=== PATIENT | female | born 1960 | race Caucasian/White ===

== ENCOUNTER 2017-01-25 15:23 | Emergency (ER) | payer SELFPAY ==
[~2017-01-25] VITALS: Ht 165.1 cm; Wt 113.4 kg
[2017-01-25 15:51] VITALS: BP 128/72
--- NOTE | 2017-01-25 16:03 | Emergency Room Report ---
History of Present Illness General Chief Complaint: Pain Source: Patient Present Illness HPI 56-year-old female presents to emergency Department complaining of pain swelling and bruising in the right foot times one week. Patient states that 2 years ago she fell and injured her foot and was never evaluated. Patient states she would intermittently has pain and swelling. Patient states that last week she was attempting to stretch her ankle while standing and thinks she may have reinjured possible previous fracture that was never diagnosed. Patient states current pain is 4/10 in severity however she took a prescription pain medication this a.m. Patient states that normally her pain is 8/10 in severity localized in the dorsum of the right foot, exacerbated upon weightbearing. Patient is currently using crutches. Denies numbness tingling or loss of sensation or gross motor movements of the extremities, incontinence of bowel or bladder. Denies CP, Palpitations, LOC, AMS, dizziness, Changes in Vision, Sensation, paresthesias, or a sudden severe headache. Allergies: Coded Allergies: EGG (Verified Allergy, Unknown, 01/25/17) SHELLFISH DERIVED (Verified Allergy, Unknown, 01/25/17) Patient History Past Medical History: see triage record Past Surgical History: none Pertinent Family History: none Now: No Immunizations: UTD Reviewed Nursing Documentation: PMH: Agreed, PSxH: Agreed Review of Systems All Other Systems: negative except mentioned in HPI Physical Exam Vital Signs Date Time Temp Pulse Resp B/P Pulse Ox O2 Delivery O2 Flow Rate FiO2 01/25/17 15:26 98.2 97 15 128/72 97 Room Air Sp02 EP Interpretation: reviewed, normal General Appearance: no apparent distress, alert, GCS 15, non-toxic Head: normocephalic, atraumatic Eyes: bilateral eye PERRL, bilateral eye normal inspection ENT: hearing grossly normal, normal pharynx, no angioedema, normal voice Neck: full range of motion, supple/symm/no masses Respiratory: lungs clear, normal breath sounds, speaking full sentences Cardiovascular #1: regular rate, rhythm, no edema, normal capillary refill Cardiovascular #2: 2+ dorsalis pedis (R), 2+ dorsalis pedis (L) Rectal: deferred Musculoskeletal: back normal, normal range of motion - FROM with pain, non- tender Neurologic: alert, oriented x3, responsive, motor strength/tone normal, sensory intact, speech normal Psychiatric: judgement/insight normal, memory normal, mood/affect normal, no suicidal/homicidal ideation Reflexes: 4+ bicep (R), 4+ bicep (L), 4+ tricep (R), 4+ tricep (L), 4+ knee (R) , 4+ knee (L) Skin: normal color, no rash, warm/dry, well hydrated Lymphatic: no adenopathy Procedures Splinting Splinting : Consent: Verbal Location: right foot Pre-Made Type: VIET wrap Pre-Proc Neuro Vasc Exam: normal Post-Proc Neuro Vasc Exam: normal Patient Tolerated: Well Complications: None Medical Decision Making PA Attestation Dr. Wyatt is my supervising Physician whom patient management has been discussed with. Diagnostic Impression: Primary Impression: Right foot sprain Qualified Codes: S93.601A - Unspecified sprain of right foot, initial encounter ER Course 56-year-old female presents to emergency Department complaining of pain swelling and bruising in the right foot times one week. Patient states that 2 years ago she fell and injured her foot and was never evaluated. Patient states she would intermittently has pain and swelling. Patient states that last week she was attempting to stretch her ankle while standing and thinks she may have reinjured possible previous fracture that was never diagnosed. Patient states current pain is 4/10 in severity however she took a prescription pain medication this a.m. Patient states that normally her pain is 8/10 in severity localized in the dorsum of the right foot, exacerbated upon weightbearing. Patient is currently using crutches. Ddx considered but are not limited to Fracture, dislocation, contusion, Sprain/ Strain. Vital signs: are WNL, pt. is afebrile H&PE are most consistent with foot contusion, possible sprain, will r/o fx with imaging. ORDERS: - X-ray Right Foot 3 views - negative for fx, Dislocation, or significant soft tissue injury, per preliminary read in ED by Dr. Wyatt ED INTERVENTIONS: - 600mg Motrin PO -Viet wrap applied by industrial maintenance technician. Pt. remains neurovascularly intact. DISCHARGE: At this time pt. is stable for d/c to home. Will provide printed patient care instructions, and any necessary prescriptions. Care plan and follow up instructions have been discussed with the patient prior to discharge. Last Vital Signs Date Time Temp Pulse Resp B/P Pulse Ox O2 Delivery O2 Flow Rate FiO2 01/25/17 15:51 15 128/72 97 Room Air 01/25/17 15:26 98.2 97 Disposition: HOME, SELF-CARE Condition: Stable Patient Instructions: Foot Sprain Additional Instructions: Take medications as directed. Follow up with PCP in 3-5 days Return sooner to ED if new symptoms occur, or current symptoms become worse. Do not drink alcohol, drive, or operate heavy machinery while taking [place] as this may cause drowsiness. - Please note that this Emergency Department Report was dictated using [employer] cup handle machine operator technology software, occasionally this can lead to erroneous entry secondary to interpretation by the dictation equipment. Joanne Doherty Jan 25, 2017 16:03
[2017-01-25] MEDS ORDERED: IBUPROFEN600 MG ORAL (16:36)
[2017-01-25] MEDS ORDERED: NORCO 5-325 TA1 EACH ORAL (16:36)
[2017-01-25 16:39] VITALS: BP 131/69
--- NOTE | 2017-01-25 17:03 | Diagnostic Imaging Report ---
Indication: PAIN chronic pain old injury Technique: 3 views right foot Comparison: none Findings: No acute fractures. No dislocations. Joint spaces are preserved. 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 There is a small plantar spur Impression: No acute process
== END 2017-01-25 16:53 | disposition home or self-care (01) ==
LOC: EMR 16:00
DX: S93.601A Unspecified sprain of right foot, initial encounter (principal); W19.XXXA Unspecified fall, initial encounter; Y93.89 Activity, other specified; Y92.9 Unspecified place or not applicable; Z91.012 Allergy to eggs; Z91.013 Allergy to seafood
CPT/HCPCS: 29540; 99284